=== PATIENT | female | born 1960 ===

== ENCOUNTER → 2016-10-02 | Outpatient (CLI) | payer OTHER, SELFPAY ==
--- NOTE | 2016-10-02 11:23 | REP ---
Right hand four views: There are no comparisons. There is joint space narrowing of the DIP and PIP articulations compatible with early arthropathy. The MCP articulations and carpal articulations are unremarkable. Mineralization is normal. No calcifications. No fracture or dislocation. Impression: PIP and DIP joint space narrowing. Signed by Bryan Whelan MD 10/02/2016 11:15 A
== END ==
LOC: M WUC 10:47
PROVIDERS: ATTEND Physician Assistant
DX: M79.641 Pain in right hand (principal); M79.642 Pain in left hand; M19.041 Primary osteoarthritis, right hand; M19.042 Primary osteoarthritis, left hand